=== PATIENT | female | born 1945 | race Caucasian/White ===

== ENCOUNTER 2016-08-20 15:47 | Outpatient (CLI) | payer OTHER ==
[~2016-08-20 15:47] MED LIST: ASPIRIN ADULT L81 MG PO; LORTAB 10-300 M1 ELX PO; METFORMIN HCL500 MG PO; MULTIPLE VITAMIN PO; NORCO1 TA1 PO; OMEPRAZOLE20 M1 PO; PRILOSEC20 MG PO; VITAMIN D-31000 UNIT PO
--- NOTE | 2016-08-20 16:11 | DIAGNOSTIC IMAGING REPORT ---
PROCEDURE: XR CHEST 2 VIEW INDICATION: BRONCHITIS TECHNIQUE: PA and lateral views. COMPARISON: Chest 01/31/2016 FINDINGS: Lungs are clear. Heart and mediastinum are normal. Thorax is normal. IMPRESSION: 1. Negative chest.
== END 2016-08-20 23:00 ==
LOC: XR SRH 15:47
DX: J40 Bronchitis, not specified as acute or chronic (principal)

== ENCOUNTER 2016-11-16 10:46 | Outpatient (CLI) | payer OTHER | END 2016-11-16 23:00 | LOC: LAB SRH 10:46 | DX: I10 Essential (primary) hypertension (principal); R73.09 Other abnormal glucose; M54.12 Radiculopathy, cervical region | CPT/HCPCS: 90074; 90100; 91286; 92690; 93140; 95059 ==